=== PATIENT | female | born 1995 | race Caucasian/White ===

== ENCOUNTER 2017-05-06 22:10 | Emergency (ER) | payer OTHER ==
--- NOTE | 2017-05-06 22:58 | ED ---
Lower Extremity - HPI Summary HPI Summary: 22F presents with right knee pain since Saturday. She states on Saturday she fell onto the knee as she slipped on to some water. She states pain is greatest over her patella and she has a bruise present there. she denies any weakness, numbness or tingling. She is still able to ambulate. She has been placing an KERRIE on the area, ice and taking ibuprofen. She denies any popping or clicking. - History of Current Complaint Chief Complaint: EDExtremityLower Stated Complaint: RIGHT KNEE PAIN Time Seen by Provider: 05/06/17 22:50 Hx Last Menstrual Period: 08/30/14 Pain Intensity: 3 - Allergies/Home Medications Allergies/Adverse Reactions: Allergies Allergy/AdvReac Type Severity Reaction Status Date / Time No Known Allergies Allergy Verified 02/03/16 09:42 PMH/Surg Hx/FS Hx/Imm Hx Endocrine/Hematology History: Denies: Hx Diabetes, Hx Thyroid Disease Cardiovascular History: Denies: Hx Hypertension, Hx Pacemaker/ICD Respiratory History: Denies: Hx Asthma, Hx Chronic Obstructive Pulmonary Disease (COPD) GI History: Denies: Hx Ulcer Musculoskeletal History: Reports: Other Musculoskeletal History - RIGHT KNEE FEMORAL PATELLO SYNDROME Denies: Hx Scoliosis Sensory History: Reports: Hx Contacts or Glasses - GLASSES Denies: Hx Hearing Aid Opthamlomology History: Reports: Hx Contacts or Glasses - GLASSES Neurological History: Reports: Hx Headaches, Hx Migraine - HX OF- STATES DUE TO POOR VISION Denies: Other Neuro Impairments/Disorders Psychiatric History: Denies: Hx Panic Disorder - Surgical History Surgery Procedure, Year, and Place: eye surg crosseyed. reattached finger Hx Anesthesia Reactions: No Infectious Disease History: No Infectious Disease History: Denies: Hx Hepatitis, Hx Human Immunodeficiency Virus (HIV), History Other Infectious Disease, Traveled Outside the [place] in Last 30 Days - Family History Known Family History: Negative: Cardiac Disease - Social History Alcohol Use: None Substance Use Type: Reports: None Smoking Status (MU): Never Smoked Tobacco Review of Systems Negative: Fever Negative: Chest Pain Negative: Shortness Of Breath Positive: Myalgia - knee pain right All Other Systems Reviewed And Are Negative: Yes Physical Exam Triage Information Reviewed: Yes Vital Signs On Initial Exam: Initial Vitals Temp Pulse Resp BP Pulse Ox 98.3 F 80 16 130/78 100 05/06/17 22:13 07/24/17 22:13 05/06/17 22:13 05/06/17 22:13 05/06/17 22:13 Vital Signs Reviewed: Yes Appearance: Positive: Well-Appearing Skin: Positive: Warm, Dry, Other - eccymosis noted on anterior knee over patella Head/Face: Positive: Normal Head/Face Inspection Eyes: Positive: Normal, Conjunctiva Clear Respiratory/Lung Sounds: Positive: Clear to Auscultation, Breath Sounds Present Cardiovascular: Positive: Normal, RRR Musculoskeletal: Positive: Strength/ROM Intact - right knee, Other - good pulses , capillary refill<2 secs, neg anterior drawer and romana - [place] Coma Scale Coma Scale Total: 15 Diagnostics - Vital Signs Vital Signs Temp Pulse Resp BP Pulse Ox 05/06/17 22:13 98.3 F 80 16 130/78 100 - Laboratory Lab Statement: Any lab studies that have been ordered have been reviewed, and results considered in the medical decision making process. - Radiology knee Xray Interpretation: No Acute Changes Radiology Interpretation Completed By: Radiologist Lower Extremity Course/Dx - Course Course Of Treatment: 22F presents with right knee pain since Saturday. She states on Saturday she fell onto the knee as she slipped on to some water. She states pain is greatest over her patella and she has a bruise present there. she denies any weakness, numbness or tingling. She is still able to ambulate. She has been placing an KERRIE on the area, ice and taking ibuprofen. She denies any popping or clicking. on exam tenderness over patella with ecchymosis noted. full ROM of knee. knee xray read as normal by me. continue RICE. patient understands and agrees with plan. - Diagnoses Differential Diagnosis/HQI/PQRI: Positive: Fracture (Closed), Sprain, Strain Provider Diagnoses: Right knee pain Discharge - Discharge Plan Condition: Good Disposition: HOME Patient Education Materials: Knee Pain (ED) Referrals: Justice Bhatti MD [Primary Care Provider] - Additional Instructions: Take Tylenol or ibuprofen every 6 hours as needed for pain Apply ice, rest, elevate Follow up with primary care physician within 7 days if no improvement Return to ED if develop any new or worsening symptoms
[2017-05-06 23:01] VITALS: BP 123/70
--- NOTE | 2017-05-07 07:46 | RAD ---
HISTORY: Right knee pain, trauma COMPARISONS: May 08, 2015 VIEWS: 4, Frontal, lateral, axial, and oblique views of the right knee FINDINGS: BONE DENSITY: Normal. BONES: There is no displaced fracture. JOINTS: There is no arthropathy. There is no suprapatellar joint effusion or lipohemarthrosis. ALIGNMENT: There is no dislocation. SOFT TISSUES: Unremarkable. OTHER FINDINGS: None. IMPRESSION: NO ACUTE OSSEOUS INJURY. IF SYMPTOMS PERSIST, RECOMMEND REPEAT IMAGING.
== END 2017-05-06 23:02 | disposition home or self-care (01) ==
LOC: ED 22:10
DX: M25.561 Pain in right knee (principal)
CPT/HCPCS: 99281

== ENCOUNTER 2017-11-15 08:26 | Day surgery (SDC) | payer OTHER ==
--- NOTE | 2017-11-11 19:48 | HP ---
HISTORY AND PHYSICAL: DATE OF ADMISSION: 11/15/17 [facility] ATTENDING SURGEON: Dr. Nieto * (DICTATED BY LUIS FELIPE RODRIGUEZ) HISTORY OF PRESENT ILLNESS: Ms. Strange is a 61-koui-4-month-old female who presents to the office for a new complaint of cyst on the dorsal aspect of her left hand. She has had a ganglion cyst on the right hand removed previously and did well with that with no recurrence. She would like to have the cyst on her left hand removed. She states it causes her a little bit of pain and is an annoyance especially when he hits it. She states that this has been going on for about a week with no inciting injury. She states relieving the pain is ice and ibuprofen. PAST MEDICAL HISTORY: Nothing about. PAST SURGICAL HISTORY: 1. Finger reattachment in 1998. 2. Eye surgery in June 2010. 3. Right wrist ganglion cyst removal 2 years ago in February 2016. MEDICATIONS: None. ALLERGIES: No known drug allergies. FAMILY HISTORY: Diabetes, mother's side. Stroke, mother's side. Cancer, mother's side. SOCIAL HISTORY: The patient lives with mother and sister. She is worker. She does not smoke. She does not drink. She does not utilize illicit drugs. REVIEW OF SYSTEMS: General: The patient denies any fevers, chills, or night sweats. No known anesthesia problems. HEENT: The patient denies any headaches , lightheadedness, or syncopal episodes. Cardiothoracic: The patient denies any chest pain, heart palpitations, or edema. Pulmonary: The patient denies any shortness of breath with exertion, chronic cough, COPD. GI: The patient denies any nausea, vomiting, diarrhea, constipation, or GERD. : The patient denies any nocturia, urinary frequency or urgency. MSK: The patient admits to a painful cyst on the dorsal aspect of her left wrist. She denies any chronic or intermittent back pain or fractures. Neuro: Denies any paresthesias or numbness. Integument: Denies any abrasions, lesions, rashes, or lumps. Endocrine: Denies any diabetes or thyroid issues. PHYSICAL EXAMINATION GENERAL: The patient is alert and oriented x3 with appropriate mood and affect , appropriate dress and hygiene. HEENT: Normocephalic, atraumatic. Hearing and vision are grossly intact. CARDIO: Regular rate and rhythm. Normal S1 and S2. No appreciable S3 or S4. No murmurs, rubs, or gallops. PULMONARY: Lungs are clear to auscultation bilaterally with no wheezes, rales, or rhonchi. MUSCULOSKELETAL: Left upper extremity, left hand, inspection of left hand revealed no erythema, no ecchymosis. Skin is warm, dry, and intact. There was a mild to moderate size dorsal swelling that is soft when palpated. Tender to palpation on the dorsal aspect of her hand. The patient has full range of motion of the upper extremity 90 to 90, extension to flexion. She has full sensation intact to light touch distally with a 2+ radial pulse. IMAGING: X-rays of the left hand and wrist were obtained and reviewed. There were no acute osseous abnormalities. No widening of the joints of the carpal bone. No fracture seen. IMPRESSION: Left hand dorsal ganglion cyst. PLAN: The patient will undergo a left wrist ganglion cyst excision on 11/15/[address] Essie Nieto. The patient will follow up in 10 to 14 days after for suture removal and reevaluation. LUIS FELIPE RODRIGUEZ [id number]/[facility] #: [id number] [facility] HOSPITALIsa
[~2017-11-15 08:26] MED LIST: Buffered Lidocaine 0.9% SYRIN* 5 ML/SYR SYRINGE INTRADERM ONE; Lidocaine 1% INJ* 10 MG/ML 30 ML SDV ONE
[2017-11-15] MEDS ORDERED: Midazolam* 1 MG/ML 2 ML VIAL (2 MG) ONE (10:32)
[2017-11-15] MEDS ORDERED: Propofol* 10 MG/ML 20 ML BTL IV PUSH ONE (10:33)
[2017-11-15] MEDS ORDERED: Ketorolac INJ* 30 MG/ML 1 ML VIAL ONE (10:33)
[2017-11-15] MEDS ORDERED: Naloxone* 0.4 MG/ML 1 ML VIAL IV PRN (10:42)
[2017-11-15 11:32] VITALS: BP 123/67
--- NOTE | 2017-11-15 21:22 | OP ---
DATE OF OPERATION: 11/15/17 [facility] DATE OF : [birth year] SURGEON: Essie Nieto MD ARTS ADMINISTRATOR: LUIS FELIPE Villafana ANESTHESIA: Local MAC. PRE-OP DIAGNOSIS: Left wrist ganglion. POST-OP DIAGNOSIS: Left wrist ganglion. OPERATIVE PROCEDURE: Left wrist ganglion excision. ESTIMATED BLOOD LOSS: Zero. TOURNIQUET TIME: About 10 minutes. INDICATION FOR PROCEDURE: Cristine is a 22-year-old female who has a painful mass on the dorsal aspect of her left wrist. She presents for ganglion excision of the left wrist. DESCRIPTION OF PROCEDURE: The patient was brought to the operating room and was given a sedation anesthetic and a local infiltration of 10 cc of 1% plain lidocaine overlying the dorsal wrist mass. Skin of her left upper extremity was prepped and draped in the usual sterile fashion. The hand and forearm were exsanguinated and the tourniquet elevated to 250 mmHg. A transverse incision was made centered over the dorsal wrist mass and dissected bluntly through the subcutaneous tissue. The extensor tendons were retracted and there was a ganglion cyst emanating from the dorsal wrist capsule. It was removed with a portion of the wrist capsule overlying the scapholunate ligament. The edges of the capsule and dorsal aspect of the scapholunate ligament were cauterized with a Bovie. The wound was irrigated and then the skin edges were reapproximated with 4-0 nylon suture. The wound was dressed with Xeroform, 4x4, Webril, and an [place] wrap. The patient tolerated the procedure well and was brought to the recovery room in good condition. [id number]/[facility] #: [id number] [facility]
== END 2017-11-15 11:56 | disposition home or self-care (01) ==
LOC: OREAST 08:26
PROVIDERS: ATTEND Orthopaedic Surgery
DX: M67.432 Ganglion, left wrist (principal)
CPT/HCPCS: 81025; 88304; J1885; J2250; J2704